=== PATIENT | male | born 1935 | race Caucasian/White ===

== ENCOUNTER 2018-01-20 14:33 | Emergency (ER) | payer MEDICARE, OTHER ==
[2018-01-20] MEDS ORDERED: Morphine 4 MG/ML Syringe IVPUSH ONE (14:52)
[2018-01-20] MEDS: Nitroglycerin 0.4 MG Tab.SL SL ONE ×3 (14:55→15:10)
[2018-01-20] MEDS ORDERED: Sodium Chloride 0.9% 1,000 ML IV ONE ×2 (14:57→15:04)
--- NOTE | 2018-01-20 15:13 | EDM.PDOC ---
ED HPI GENERAL MEDICAL PROBLEM - General Chief Complaint: Chest Pain Stated Complaint: Chest Pain Time Seen by Provider: 01/20/18 14:45 Source of Information: Reports: Patient History Limitations: Reports: No Limitations - History of Present Illness INITIAL COMMENTS - FREE TEXT/NARRATIVE: 82 YO WM presents to ER from clinic complaining of nausea/vomiting and epigastric abdominal pain which began 11 hours ago. Pt reports he had similar symptoms in the remote past requiring PTCA with 3 stents. Pt reports associated shortness of breath but denies dizziness or diaphoresis. Pt with PMH of A fib, Htn, and Hyperlipidemia. Onset: Today Onset Date: 01/20/18 Onset Time: 04:00 Location: Reports: Chest, Abdomen Quality: Reports: Pressure Severity: Moderate Improves with: Reports: None Worsens with: Reports: None Associated Symptoms: Reports: Chest Pain, Nausea/Vomiting, Shortness of Breath Epigastric Pain Score (Numeric/FACES): 9 - Related Data Allergies Allergy/AdvReac Type Severity Reaction Status Date / Time No Known Drug Allergies Allergy Cannot Verified 01/20/18 15:24 Remember Home Meds: Home Meds Aspirin [Adult Low Dose Aspirin EC] 81 mg PO DAILY 01/20/18 [History] Glucosamine/D3/Boswellia Ronda [Osteo Bi-Flex Caplet] 1 each PO DAILY 01/20/18 [ History] Levothyroxine [Sythroid] 100 mcg PO DAILY 01/20/18 [History] Lisinopril 20 mg PO DAILY 01/20/18 [History] Metoprolol Tartrate 50 mg PO BID 01/20/18 [History] Multivit-Min/FA/Lycopene/Lut [Centrum Silver Tablet] 1 each PO ACBREAKFAST 01/20 [History] Nitroglycerin [Nitrostat] 0.4 mg SL ASDIRECTED 01/20/18 [History] Simvastatin [Zocor] 20 mg PO DAILY 01/20/18 [History] Warfarin [Coumadin] 3 mg PO DAILY 01/20/18 [History] ED ROS GENERAL - Review of Systems Review Of Systems: See Below Constitutional: Reports: No Symptoms HEENT: Reports: No Symptoms Respiratory: Reports: Shortness of Breath Cardiovascular: Reports: Chest Pain Endocrine: Reports: No Symptoms GI/Abdominal: Reports: Vomiting : Reports: No Symptoms Musculoskeletal: Reports: No Symptoms Skin: Reports: No Symptoms Neurological: Reports: No Symptoms Psychiatric: Reports: No Symptoms Hematologic/Lymphatic: Reports: No Symptoms Immunologic: Reports: No Symptoms ED EXAM, GENERAL - Physical Exam Exam: See Below Exam Limited By: No Limitations General Appearance: Alert, WD/WN, No Apparent Distress Respiratory/Chest: No Respiratory Distress, Lungs Clear, Normal Breath Sounds, No Accessory Muscle Use, Chest Non-Tender Cardiovascular: Tachycardia, Irregularly Irregular GI/Abdominal: Normal Bowel Sounds, Soft, Non-Tender, No Organomegaly, No Abnormal Bruit, No Mass, Distended Back Exam: Normal Inspection, Full Range of Motion, NT Extremities: Normal Inspection, Normal Range of Motion, Non-Tender, Normal Capillary Refill, No Pedal Edema Neurological: Alert, Oriented, CN II-XII Intact, Normal Cognition, Normal Gait, Normal Reflexes, No Motor/Sensory Deficits Psychiatric: Normal Affect, Normal Mood Skin Exam: Warm, Dry, Intact, Normal Color, No Rash Lymphatic: No Adenopathy EKG INTERPRETATION EKG Date: 01/20/18 Time: 14:58 Rhythm: A-Fib Rate (Beats/Min): 112 [place]: RAD-Right [place] Deviation P-Wave: Absent QRS: RBBB ST-T: Normal QT: Normal Comparison: NA - No Prior EKG Course - Vital Signs Last Recorded V/S: Last Vital Signs Temp 36.1 C 01/20/18 15:00 Pulse 129 H 01/20/18 15:00 Resp 20 01/20/18 15:00 BP 211/122 H 01/20/18 15:00 Pulse Ox 97 01/20/18 15:00 - Orders/Labs/Meds Orders: Active Orders 24 hr Category Date Time Status EKG Documentation Completion [RC] ASDIRECTED Care 01/20/18 14:53 Active Chest 1V Frontal [CR] Stat Exams 01/20/18 14:53 Ordered INR,PT,PROTHROMBIN TIME [COAG] Stat Lab 01/20/18 14:55 Received Diltiazem Med 01/20/18 15:29 Once 10 mg IVPUSH ONETIME ONE Sodium Chloride 0.9% @ 999 MLS/HR (1000ml) Med 01/20/18 15:04 Ordered Sodium Chloride 0.9% [Normal Saline] 1,000 ml IV .BOLUS Sodium Chloride 0.9% [Normal Saline] 1,000 ml Med 01/20/18 14:57 Active IV .BOLUS EKG 12 Lead [EK] Routine Ther 01/20/18 14:53 Ordered Medication Orders Diltiazem HCl (Diltiazem) 10 mg IVPUSH ONETIME ONE Stop: 01/20/18 15:30 Sodium Chloride (Normal Saline) 1,000 mls @ 999 mls/hr IV .BOLUS ONE Stop: 01/20/18 15:57 Sodium Chloride (Normal Saline) 1,000 mls @ 999 mls/hr IV .BOLUS ONE Stop: 01/20/18 16:04 Labs: Laboratory Tests 01/20/18 01/20/18 Range/Units 14:55 14:55 WBC 15.4 H (5.0-10.0) 10^3/uL RBC 5.65 (4.50-6.00) 10^6/uL Hgb 17.2 H (13.0-17.0) g/dL Hct 52.2 H (40.0-52.0) % MCV 92.5 H (82.0-92.0) fL MCH 30.5 (27.0-31.0) pg MCHC 33.0 (32.0-36.0) g/dL RDW 13.2 (11.5-14.5) % Plt Count 340 H (150-300) 10^3/uL MPV 7.8 (7.4-10.4) fL Neut % (Auto) 87.2 H (50.0-70.0) % Lymph % (Auto) 7.6 L (20.0-40.0) % [place] % (Auto) 4.2 (2.0-8.0) % Eos % (Auto) 0.1 L (1.0-3.0) % Baso % (Auto) 0.9 (0.0-1.0) % Neut # (Auto) 13.5 H (2.5-7.0) 10^3/uL Lymph # (Auto) 1.2 (1.0-4.0) 10^3/uL [place] # (Auto) 0.6 (0.1-0.8) 10^3/uL Eos # (Auto) 0.0 L (0.1-0.3) 10^3/uL Baso # (Auto) 0.1 (0.0-0.1) 10^3/uL Sodium 149 H (136-145) mmol/L Potassium 4.0 (3.3-5.3) mmol/L Chloride 100 (98-115) mmol/L Carbon Dioxide 24.4 (21.0-32.0) mmol/L BUN 21 (6-25) mg/dL Creatinine 0.78 (0.51-1.17) mg/dL Est Cr Clr Drug Dosing 65.91 mL/min Estimated GFR (MDRD) > 60 mL/min Glucose 202 H (70-110) mg/dL Calcium 9.8 (8.7-10.3) mg/dL Total Bilirubin 0.9 (0.2-1.0) mg/dL AST 17 (15-37) U/L ALT 27 (12-78) U/L Alkaline Phosphatase 60 (46-116) IU/L CK-MB (CK-2) 4.70 H* (0.00-4.30) ng/mL Troponin I 0.04 (0.00-0.070) ng/mL Total Protein 8.1 (6.4-8.2) g/dL Albumin 3.63 (3.00-4.80) g/dL Meds: Medications Generic Name Dose Route Start Last Admin Trade Name Freq PRN Reason Stop Dose Admin Diltiazem HCl 10 mg 01/20/18 15:29 Diltiazem IVPUSH 01/20/18 15:30 ONETIME ONE Sodium Chloride 1,000 mls @ 999 mls/hr 01/20/18 14:57 Normal Saline IV 01/20/18 15:57 .BOLUS ONE Sodium Chloride 1,000 mls @ 999 mls/hr 01/20/18 15:04 Normal Saline IV 01/20/18 16:04 .BOLUS ONE Discontinued Medications Generic Name Dose Route Start Last Admin Trade Name Freq PRN Reason Stop Dose Admin Morphine Sulfate 4 mg 01/20/18 14:52 Morphine IVPUSH 01/20/18 14:53 ONETIME ONE Nitroglycerin 0.4 mg 01/20/18 14:52 Nitrostat SL 01/20/18 14:53 ONETIME ONE - Radiology Interpretation Free Text/Narrative:: CXR- NAD Departure - Departure Time of Disposition: 15:52 Disposition: DC/Tfer to Acute Hospital 02 Reason for Transfer *Q: Other Condition: Serious Clinical Impression: Epigastric abdominal pain Atrial fibrillation Qualifiers: Atrial fibrillation type: chronic Qualified Code(s): I48.2 - Chronic atrial fibrillation Referrals: PCP,Not In Area [Primary Care Provider] - Forms: ED Department Discharge, Interfacility Transfer LEE ANN - My Orders Last 24 Hours: My Active Orders 01/20/18 15:04 Sodium Chloride 0.9% @ 999 MLS/HR (1000ml) Sodium Chloride 0.9% [Normal Saline] 1,000 ml IV .BOLUS 01/20/18 15:29 Diltiazem 10 mg IVPUSH ONETIME ONE - Assessment/Plan Last 24 Hours: My Active Orders 01/20/18 15:04 Sodium Chloride 0.9% @ 999 MLS/HR (1000ml) Sodium Chloride 0.9% [Normal Saline] 1,000 ml IV .BOLUS 01/20/18 15:29 Diltiazem 10 mg IVPUSH ONETIME ONE Assessment:: 1. Atrial Fibrillation RVR 2. Hyperglycemia 3. Hypernatremia 4. Epigastric abdominal pain Plan: 1. discussed case with Dr Estrella- Transfer to [facility] for further management and treatment 2. cardizem 5mg gtt
[2018-01-20 15:27] LABS: CHLORIDE,CL 100 mmol/L (98-115); SODIUM,NA 149 mmol/L (136-145)
[2018-01-20] MEDS ORDERED: Diltiazem 25 MG/5 ML SDV IVPUSH ONE (15:29)
[2018-01-20] MEDS ORDERED: Diltiazem 125 MG in Sodium Chloride 0.9% 100 ML IV SCH (16:00)
== END 2018-01-20 16:20 ==
LOC: KA.ED 14:33
DX: I48.2 Chronic atrial fibrillation (principal); E87.0 Hyperosmolality and hypernatremia; R73.9 Hyperglycemia, unspecified; R10.13 Epigastric pain; Z79.82 Long term (current) use of aspirin; Z79.899 Other long term (current) drug therapy; Z79.01 Long term (current) use of anticoagulants
CPT/HCPCS: 71045; 80053; 82553; 83880; 84484; 85025; 85610; 96361; 96365; 96375; 99285; A9270-GY; J2270; J3490; J7030; J7050

== ENCOUNTER 2018-10-06 07:58 | Emergency (ER) | payer MEDICARE, OTHER ==
--- NOTE | 2018-10-06 09:14 | CR ---
[id number] RAD/RAD Abd Flat and Upright 2V Exam: RAD Abd Flat and Upright 2V Clinical Data: ABDOMINAL PAIN COMPARISON: NO PREVIOUS SIMILAR EXAM IS AVAILABLE FINDINGS: There is significant large bowel distention. There is no obvious free air. Consider a barium enema, surgical consultation, or colonoscopy. IMPRESSION: SIGNIFICANT LARGE BOWEL DISTENTION. QUESTION OF POSSIBLE DISTAL COLONIC LESION IS CONSIDERED. Darin Marte MD 10/06/18 [id number] Thank you for allowing us to participate in the care of your patient.
--- NOTE | 2018-10-06 09:16 | EDM.PDOC ---
ED HPI GENERAL MEDICAL PROBLEM - General Chief Complaint: Abdominal Pain Stated Complaint: STOMACH ISSUES Time Seen by Provider: 10/06/18 08:47 Source of Information: Reports: Patient History Limitations: Reports: No Limitations - History of Present Illness INITIAL COMMENTS - FREE TEXT/NARRATIVE: Patient presents with bloating and constipation. Last BM was 3 days ago; he passed a little gas this morning. He uses Dulcolax at home. He has had this before. Treatments WORKFORCE CONSULTANT: Reports: Other (see below) Other Treatments WORKFORCE CONSULTANT: dulcolax x 3 tablets yesterday Abdominal Pain Score (Numeric/FACES): 7 - Related Data Allergies Allergy/AdvReac Type Severity Reaction Status Date / Time No Known Drug Allergies Allergy Cannot Verified 10/06/18 08:05 Remember Home Meds: Home Meds Aspirin [Adult Low Dose Aspirin EC] 81 mg PO DAILY 01/20/18 [History] Glucosamine/D3/Boswellia Ronda [Osteo Bi-Flex Caplet] 1 each PO DAILY 01/20/18 [ History] Levothyroxine [Sythroid] 100 mcg PO DAILY 01/20/18 [History] Lisinopril 20 mg PO DAILY 01/20/18 [History] Metoprolol Tartrate 50 mg PO BID 01/20/18 [History] Multivit-Min/FA/Lycopene/Lut [Centrum Silver Tablet] 1 each PO ACBREAKFAST 01/20 [History] Nitroglycerin [Nitrostat] 0.4 mg SL ASDIRECTED 01/20/18 [History] Simvastatin [Zocor] 20 mg PO BEDTIME 01/20/18 [History] Warfarin [Coumadin] 2.5 mg PO BEDTIME 10/06/18 [History] ED ROS GENERAL - Review of Systems Review Of Systems: See Below Constitutional: Denies: Fever, Decreased Appetite HEENT: Reports: No Symptoms Respiratory: Denies: Shortness of Breath, Cough Cardiovascular: Denies: Chest Pain, Lightheadedness, Syncope Endocrine: Reports: No Symptoms GI/Abdominal: Reports: Abdominal Pain, Constipation, Distension. Denies: Black Stool, Bloody Stool, Diarrhea, Decreased Appetite, Nausea, Vomiting : Reports: No Symptoms Musculoskeletal: Reports: No Symptoms Skin: Denies: Cyanosis, Jaundice, Mottled, Pallor, Diaphoresis Neurological: Denies: Confusion, Dizziness, Headache, Seizure, Syncope, Weakness , Change in Speech Psychiatric: Denies: Agitation, Anxiety, Confusion ED EXAM, GI/ABD - Physical Exam Exam: See Below Exam Limited By: No Limitations General Appearance: Alert, WD/WN, No Apparent Distress Eyes: Bilateral: Normal Appearance, EOMI Ears: Normal External Exam, Hearing Grossly Normal Nose: Normal Inspection, No Blood Throat/Mouth: Normal Inspection, Normal Lips, Normal Voice, No Airway Compromise Head: Atraumatic, Normocephalic Neck: Normal Inspection, Full Range of Motion Respiratory/Chest: No Respiratory Distress, Lungs Clear, Normal Breath Sounds, No Accessory Muscle Use Cardiovascular: Regular Rate, Rhythm, No Murmur, Tachycardia GI/Abdominal Exam: Soft, No Organomegaly, No Abnormal Bruit, Distended, Tender ( general, mild), Abnormal Bowel Sounds (decreased). No: Guarding, Rigid, Rebound , Mass, Hepatomegaly Rectal (Males) Exam: Normal Exam, Normal Rectal Tone, Other (soft brown stool is present but not impacted). No: Black Stool, Bloody Stool, Decreased Rectal Tone, Fecal Impaction, Hemorrhoids, Mass, Perirectal Abscess, Rectal Fissure, Tenderness Back Exam: No: CVA Tenderness (L), CVA Tenderness (R) Extremities: Normal Inspection, Normal Range of Motion Neurological: Alert, Oriented, Normal Cognition, No Motor/Sensory Deficits Psychiatric: Normal Affect, Normal Mood Skin Exam: Warm, Dry, Intact, Normal Color, No Rash Course - Vital Signs Last Recorded V/S: Last Vital Signs Temp 95.8 F 10/06/18 07:59 Pulse 111 H 10/06/18 07:59 Resp 16 10/06/18 07:59 BP 197/101 H 10/06/18 07:59 Pulse Ox 95 10/06/18 07:59 - Orders/Labs/Meds Orders: Active Orders 24 hr Category Date Time Status Abdomen 2V AP Upright Decub [CR] Stat Exams 10/06/18 08:09 Ordered - Re-Assessments/Exams Free Text/Narrative Re-Assessment/Exam: 10/06/18 09:35 Soap suds enema produces a moderate amount of stool and mild relief of bloating feeling per patient. He wants to try another one. Xray shows significant large bowel distension. 10/06/18 10:05 Third enema wasn't successful in moving more stool and patient still feels bloated. Discussed case with general surgeon, Dr. Arthur who accepted for transfer to [facility]. Patient agreeable with this and is stable at time of transfer. Departure - Departure Time of Disposition: 10:04 Disposition: DC/Tfer to Acute Hospital 02 Condition: Good Clinical Impression: Gaseous distention of intestine determined by X-ray - Discharge Information Referrals: PCP,Not In Area [Primary Care Provider] - - My Orders Last 24 Hours: My Active Orders 10/06/18 08:09 Abdomen 2V AP Upright Decub [CR] Stat - Assessment/Plan Last 24 Hours: My Active Orders 10/06/18 08:09 Abdomen 2V AP Upright Decub [CR] Stat
[2018-10-06] MEDS ORDERED: HYDROmorphone 1 MG/ML Syringe IVPUSH ONE (10:10)
== END 2018-10-06 10:43 ==
LOC: KA.ED 07:58
DX: R14.3 Flatulence (principal); K63.89 Other specified diseases of intestine; Z79.899 Other long term (current) drug therapy
CPT/HCPCS: 74021; 99284; 99285; J1170